=== PATIENT | female | born 1975 | race Caucasian/White ===

== ENCOUNTER 2024-09-10 11:18 | Emergency (ER) | payer SELFPAY ==
--- NOTE | 2024-09-10 11:19 | ECG_ITS ---
[facility] Test Date: 2024-09-10 Pat Name: Amarilis Guardado Department: Room: Gender: Female Internet Webmaster: : 1975 Requested By: Jcarlos Auguste Order Number: [id number] Vlad MD: Trenton Curry M.D. Measurements Intervals [place] Rate: 84 P: 70 NV: 147 QRS: 76 QRSD: 84 T: 57 QT: 391 QTc: 464 Interpretive Statements SINUS RHYTHM WITH FREQUENT VENTRICULAR PREMATURE COMPLEXES No previous ECG available for comparison Electronically Signed On 09-13-2024 23:14:26 [employer]INGS [employer] by Trenton Curry M.D. [id number]
[2024-09-10 11:32] VITALS: BP 144/89; PULSE 64; RESP 16; TEMP 36.6; O2SAT 100; BMI 24.5
--- NOTE | 2024-09-10 12:16 | ED_ITS ---
HPI - Arrhythmia/Palpitations 2 General: Chief Complaint: Arrhythmia/Palpitations Stated Complaint: urgent care sent for EKG Time Seen by Provider: 09/10/24 12:03 History of Present Illness: Amarilis is a 49-year-old female past medical history of SVT on metoprolol for over 20 years, presenting today with 2 days of persistent positional lightheadedness, palpitations, chest discomfort. Symptoms have been ongoing and constant. Has been taking her metoprolol as prescribed. She tested positive for COVID about 8 days ago and has been having some mild shortness of breath related to that, otherwise largely asymptomatic. Denies any new stimulants such as alcohol, caffeine, new medications or exertion. Associated symptoms: Reports pre-syncope; Deny nausea, syncope or vomiting Related Data Home Medications Medication Instructions Recorded Confirmed cetirizine 10 mg tablet (Zyrtec) 10 mg PO DAILY allergies 09/10/24 09/10/24 lorazepam 0.5 mg tablet (Ativan) 0.5 mg PO TID PRN Anxiety 09/10/24 09/10/24 metoprolol succinate 25 mg 25 mg PO QAM 09/10/24 09/10/24 tablet,extended release 24 hr Allergies Allergy/AdvReac Type Severity Reaction Status Date / Time Penicillins Allergy Mild rash/swelli Verified 09/10/24 10:40 ng Review of Systems 2 Const: Denies: fever(s) or chills Card: Reports: palpitations, lightheadedness and pre-syncope; Denies: chest pain, swelling of feet/ankles, syncope or dyspnea on exertion Resp: Reports: dyspnea and chest congestion; Denies: wheezing GI: Denies: abdominal pain, nausea or vomiting PFSH ED 2 PFSH: Social History Smoking and tobacco/nicotine status: current every day tobacco/nicotine user Physical Exam 2 Const: COMMON NORMALS: no acute distress and healthy appearing GENERAL APPEARANCE: cooperative, comfortable and well developed HENMT: COMMON NORMALS: normocephalic, atraumatic, external ears normal, Normal external nose present and oropharynx normal HEAD & SCALP: normal to inspection, normocephalic and atraumatic FACE & SINUS: normal facial exam and face symmetric NOSE: Normal external nose present and Normal nares present EXTERNAL EAR: Yes external ears normal MOUTH: Normal oral and palatal mucosa present, lip normal and tongue normal THROAT: posterior oropharynx normal, tonsils normal and uvula midline Eye: COMMON NORMALS: conjunctivae normal GENERAL EYE: appearance normal, both eyes and all related structures PERIORBITAL: periorbital findings normal CONJUNCTIVA: Yes conjunctivae normal SCLERA: sclerae normal Neck/C-Spine: COMMON NORMALS: no lymphadenopathy and no meningeal signs Resp: COMMON NORMALS: normal respiratory effort and clear to auscultation bilaterally EFFORT & INSPECTION: Yes able to speak in complete sentences, Yes symmetric chest movement, No tachypneic, No respiratory distress, No labored and No audible wheezes AUSCULTATION: clear to auscultation bilaterally Cardio: COMMON NORMALS: regular rate and No murmurs present (Cardio); negative for regular rhythm RATE: regular rate RHYTHM: abnormal rhythm HEART SOUNDS: no murmurs GI: COMMON NORMALS: Soft to palpation and No hepatosplenomegaly present I NSPECTION: No abdominal distension PALPATION: Yes Soft to palpation, No Guarding due to palpation present (GI) and Yes No hepatosplenomegaly present Neuro: MENINGEAL SIGNS: Yes no meningeal signs Skin: COMMON NORMALS: no rashes or lesions noted GENERAL SKIN EXAM: no rashes or lesions noted Course 2 Vital Signs: Vital signs: Vital Signs Temperature 97.8 F 09/10/24 11:32 Pulse Rate 74 09/10/24 14:34 Respiratory Rate 16 09/10/24 11:32 Blood Pressure 118/76 09/10/24 14:34 Pulse Oximetry 98 09/10/24 14:34 Oxygen Delivery Me thod Room Air 09/10/24 11:32 MDM - Arrhythmia/Palpitations Medical Decision Making No arrhythmias while present. Vital signs been stable discharge patient home have her follow-up with her primary care. She was recently diagnosed with COVID which is likely what is stimulating her symptoms at this point. If persist beyond the frame of her COVID follow-up with her primary care doctor for further evaluation. If she has any other change or worsening symptoms return to the emergency room. Medical Records I reviewed the patient's medical records. Lab Data I reviewed the patient's lab results. 09/10/24 12:57 09/10/24 12:57 Radiology Impressions Chest X-Ray 09/10/24 12:19 Impression: Negative chest. Laboratory Results WBC 7.31 10^3/uL (3.29-11.43) 09/10/24 12:57 RBC 5.02 10^6/uL (3.85-5.65) 09/10/24 12:57 Hgb 14.20 g/dL (11.27-16.99) 09/10/24 12:57 Hct 43.9 % (36-47) 09/10/24 12:57 MCV 87.5 fl (85-98) 09/10/24 12:57 MCH 28.3 pg (27-33) 09/10/24 12:57 MCHC 32.3 g/dL (30-55) 09/10/24 12:57 RDW 11.9 % (12.1-15.1) L 09/10/24 12:57 Plt Count 333 10^3/cmm (157-399) 09/10/24 12:57 MPV 11.0 fL (7.4-10.4) H 09/10/24 12:57 Neut % (Auto) 63.6 % 09/10/24 12:57 Lymph % (Auto) 24.2 % 09/10/24 12:57 Story % (Auto) 9.4 % 09/10/24 12:57 Eos % (Auto) 1.8 % 09/10/24 12:57 Baso % (Auto) 0.7 % 09/10/24 12:57 Neut # (Auto) 4.65 10^3/uL (1.8-7.7) 09/10/24 12:57 Lymph # (Auto) 1.8 10^3/uL (0.8-4.8) 09/10/24 12:57 Story # (Auto) 0.7 10^3/uL (0.2-0.9) 09/10/24 12:57 Eos # (Auto) 0.1 10^3/uL (0.0-0.8) 09/10/24 12:57 Baso # (Auto) 0.1 10^3/uL (0.0-0.1) 09/10/24 12:57 Nucleated RBC % (auto) 0 % 09/10/24 12:57 Nucleated RBCs # 0.0 /100WBC 09/10/24 12:57 Sodium 141 mmol/L (136-145) 09/10/24 12:57 Potassium 4.1 mmol/L (3.5-5.1) 09/10/24 12:57 Chloride 102 mmol/L (98-107) 09/10/24 12:57 Carbon Dioxide 28 mmol/L (22-29) 09/10/24 12:57 Anion Gap 15.1 (5-19) 09/10/24 12:57 BUN 14 mg/dL (6-20) 09/10/24 12:57 Creatinine 0.6 mg/dL (0.5-0.9) 09/10/24 12:57 GFR Calculation 106.3 mL/min (90-130) 09/10/24 12:57 Glucose 97 mg/dL (65-115) 09/10/24 12:57 Calculated Osmolality 292 mOsm/kg (285-295) 09/10/24 12:57 Calcium 9.5 mg/dL (8.5-10.5) 09/10/24 12:57 Magnesium 2.1 mg/dL (1.7-2.3) 09/10/24 12:57 Total Bilirubin 0.2 mg/dL (0.15-1.2) 09/10/24 12:57 AST 14 U/L (0-32) 09/10/24 12:57 ALT 16 U/L (0-33) 09/10/24 12:57 Alkaline Phosphatase 72 U/L (35-105) 09/10/24 12:57 Total Protein 7.5 g/dL (6.6-8.7) 09/10/24 12:57 Albumin 4.2 g/dL (3.5-5.2) 09/10/24 12:57 Globulin 3.3 g/dL (1.3-4.6) 09/10/24 12:57 TSH 1.71 uIU/mL (0.27-4.20) 09/10/24 12:57 All radiology interpretation(s) finalized by discharge Discharge Plan Discharge Patient Disposition: Home Clinical Impression: Palpitations, COVID-19 Condition: Stable Prescriptions: No Action metoprolol succinate 25 mg tablet extended release 24 hr 25 mg PO QAM cetirizine [Zyrtec] 10 mg tablet 10 mg PO DAILY lorazepam [Ativan] 0.5 mg tablet 0.5 mg PO TID PRN (Reason: Anxiety) Discharge Orders: Discharge ED (Routine); Ordered 09/10/24 Ordered By: Oscar Salcedo Discharge Diet: Usual diet Discharge Activity: Resume usual activity Patient Instructions: Premature Ventricular Contractions (ED), Opioid Safety, Pain Management Activity Restrictions/Additional Instructions: Thank you for choosing [facility] for your healthcare needs today. It is very important that you follow up as instructed or that you return to the Emergency Department should you have concerns or if your condition changes or worsens in any way. Coding Level of Care Code ED [employer] Operator for Jose Paredes
--- NOTE | 2024-09-10 12:19 | XR_ITS ---
WS: [id number] Portable AP upright chest, 09/10/2024 Clinical Data: dyspnea/cough Comparison: None. Findings: No nodules, masses or effusions are seen. The heart is normal. The pulmonary vascularity is not increased. No pneumonia or pneumothorax is seen. There are monitor leads on the chest wall. XR/XR chest 1V portable [id number] Impression: Negative chest.
[2024-09-10 13:15] LABS: Basophils # 0.1 10^3/uL (0.0-0.1); Basophils % 0.7 %; Eosinophils # 0.1 10^3/uL (0.0-0.8); Eosinophils % 1.8 %; Hematocrit 43.9 % (36-47); Lymphocytes # 1.8 10^3/uL (0.8-4.8); Lymphocytes % 24.2 %; Mean Corpuscular HGB Conc 32.3 g/dL (30-55); Mean Corpuscular Hemoglobin 28.3 pg (27-33); Mean Corpuscular Volume 87.5 fl (85-98); Monocytes # 0.7 10^3/uL (0.2-0.9); Monocytes % 9.4 %; Neutrophils # 4.65 10^3/uL (1.8-7.7); Neutrophils % 63.6 %; Nucleated Red Blood Cells % 0 %; Platelet Count 333 10^3/cmm (157-399); Red Blood Count 5.02 10^6/uL (3.85-5.65); Red Cell Distribution Width 11.9 % (12.1-15.1); White Blood Count 7.31 10^3/uL (3.29-11.43)
[2024-09-10 13:43] LABS: Alanine Aminotransferase 16 U/L (0-33); Albumin Level 4.2 g/dL (3.5-5.2); Alkaline Phosphatase 72 U/L (35-105); Anion Gap 15.1 (5-19); Aspartate Amino Transferase 14 U/L (0-32); Blood Urea Nitrogen 14 mg/dL (6-20); Calcium 9.5 mg/dL (8.5-10.5); Carbon Dioxide 28 mmol/L (22-29); Chloride 102 mmol/L (98-107); Globulin 3.3 g/dL (1.3-4.6); Glomerular Filtration Rate 106.3 mL/min (90-130); Glucose 97 mg/dL (65-115); Magnesium 2.1 mg/dL (1.7-2.3); Osmolality Calculated 292 mOsm/kg (285-295); Potassium 4.1 mmol/L (3.5-5.1); Sodium 141 mmol/L (136-145); Thyroid Stimulating Hormone 1.71 uIU/mL (0.27-4.20); Total Bilirubin 0.2 mg/dL (0.15-1.2); Total Protein 7.5 g/dL (6.6-8.7)
[2024-09-10 14:34] VITALS: BP 118/76; PULSE 74; O2SAT 98
== END 2024-09-10 14:49 | disposition home or self-care (01) ==
PROVIDERS: Emergency Provider Family Medicine
DX: R00.2 Palpitations (principal); U07.1 COVID-19; Z72.0 Tobacco use
CPT/HCPCS: 36415; 71045; 80053; 83735; 84443; 85025; 93005; 99285

== ENCOUNTER → 2024-12-31 14:43 | Outpatient (BNVA) | payer OTHER, SELFPAY | PROVIDERS: PCP Nurse Practitioner Family; Visit Provider Podiatrist Foot & Ankle Surgery | DX: M79.672 Pain in left foot (principal); M79.671 Pain in right foot | CPT/HCPCS: 73630 ==

== ENCOUNTER 2025-01-07 07:17 | Outpatient (CLI) | payer OTHER, SELFPAY ==
--- NOTE | 2025-01-07 07:23 | US_ITS ---
WS: [id number] Complete ABDOMINAL ULTRASOUND HISTORY: RUQ ABDOMINAL PAIN COMPARISON: None available. Liver: 15.3 cm in length. Normal size liver and echogenicity. No bile duct dilatation or mass. Portal Vein: Normal hepatopetal flow with monophasic waveform. Gallbladder: Normally distended gallbladder with no stones or wall thickening. CBD: 0.4 cm Pancreas: Normal size and echogenicity. Right kidney: 10.6 cm x 5.2 x 5.0 cm. Cortex:0.9 cm. Normal size and echogenicity. No hydronephrosis or mass. Left kidney: 10.4 cm x 4.4 cm x 4.3 cm. Cortex: 1.1 cm. Normal size and echogenicity. No hydronephrosis or mass. Spleen: 10.0 cm. Normal size and echogenicity. Aorta and IVC: Unremarkable abdominal aorta and IVC. US/US abdomen complete* [id number] Impression: Normal complete abdomen ultrasound.
== END 2025-01-07 07:18 | disposition home or self-care (01) ==
LOC: RAD 07:19
PROVIDERS: PCP Nurse Practitioner Family; Visit Provider Nurse Practitioner Family
DX: R10.11 Right upper quadrant pain (principal)
CPT/HCPCS: 76700

== ENCOUNTER 2025-03-10 09:03 | Day surgery (SDC) | payer OTHER, SELFPAY ==
[2025-03-10 09:24] VITALS: BP 116/76; PULSE 86; RESP 18; TEMP 36.4; O2SAT 98; BMI 25.5
--- NOTE | 2025-03-10 09:48 | ANES.PREANE2 ---
Pre-Anesthetic Assessment Height/Weight: Height 1.73 m Weight 76.204 kg Temp Pulse Resp BP Pulse Ox O2 Del Method 97.6 F 86 18 116/76 98 Room Air 03/10/25 09:24 03/10/25 09:24 03/10/25 09:24 03/10/25 09:24 03/10/25 09:24 03/10/25 09:24 Operation Date: 03/10/25 10:30 Proposed Procedures p Colonoscopy 61416 G0121 Z12.11(Not Applicable) - Theo Carey MD Familial anesthetic complications: None Was Beta Chad taken within 24 hours: Yes Was Clonidine taken within 24 hours: N/A Last intake: Intake Last Liquid Date 03/09/25 Last Liquid Time 20:00 Last Solid Date 03/08/25 Last Solid Time 20:00 Social No alcohol and No tobacco Exam alert, oriented x 3, clear to auscultation bilaterally and regular rate & rhythm Airway Mallampati: Class I Dentition: full CV/HEM SVT Anesthetic Plan ASA status: 3 Anesthesia: MAC Risk of > 500 ml blood loss (7ml/kg in children): No Medications/Allergies Home Medications ?Medication ?Instructions ?Recorded ?Confirmed ?Last Taken ?Type cetirizine 10 mg tablet (Zyrtec) 10 mg PO DAILY PRN allergies 09/10/24 03/09/25 03/09/25 History lorazepam 0.5 mg tablet (Ativan) 0.5 mg PO TID PRN Anxiety 09/10/24 03/10/25 2 Months Ago History ~01/08/25 metoprolol succinate 25 mg 25 mg PO DAILY 09/10/24 03/09/25 03/09/25 History tablet,extended release 24 hr zinc acetate 50 mg (zinc) capsule 50 mg PO DAILY 02/09/25 03/09/25 03/08/25 History Allergies Allergy/AdvReac Type Severity Reaction Status Date / Time Penicillins Allergy Mild rash/swelli Verified 03/09/25 08:46 ng Current Medications Generic Name Dose Route Start Last Admin Trade Name Freq PRN Reason Stop Dose Admin Sodium Chloride 1,000 mls @ 15 mls/hr 03/10/25 09:06 03/10/25 09:44 Sodium Chloride 0.9% IV 03/11/25 09:05 15 mls/hr .Q24H PRN Administration COLONOSCOPY FLUIDS PFSH Anesthesia Social History Smoking and tobacco/nicotine status: never used tobacco/nicotine
--- NOTE | 2025-03-10 10:50 | W.PM.OPSUD ---
Surgery/Procedure H&P Update DATE OF PROCEDURE: March 10, 2025 DATE H&P PERFORMED: 02/09/25 H&P UPDATE INFORMATION: I have reviewed H&P completed within last 30 days, I have examined patient prior to procedure and No changes to prior documentation PLANNED PROCEDURE: Operation Date: 03/10/25 10:30 Proposed Procedures p Colonoscopy [id number] G0121 Z12.11(Not Applicable) - Theo Carey MD
[2025-03-10 11:19] VITALS: BP 107/73; PULSE 80; RESP 20; TEMP 36.7; O2SAT 100
[2025-03-10 11:35] VITALS: BP 124/68; PULSE 76; RESP 18; O2SAT 100
--- NOTE | 2025-03-10 16:04 | ANE.PACU2 ---
Inpatient post-anesthesia follow up: Airway intact: Yes Vital signs: Temperature 98.0 F Pulse Rate 76 Respiratory Rate 18 Blood Pressure 124/68 Pulse Oximetry 100 Oxygen Delivery Me thod Room Air Oxygen Flow Rate 2 Fraction of Inspir ed Oxygen Hydration adequate: Yes Nausea and vomiting: No Pain level: 1 Mental status: Baseline
== END 2025-03-10 11:47 | disposition home or self-care (01) ==
PROVIDERS: PCP Nurse Practitioner Family; Visit Provider Student in an Organized Health Care Education/Training Program
PROC: 0DJD8ZZ Inspection of Lower Intestinal Tract, Via Natural or Artificial Opening Endoscopic (ICD-10-PCS; CPT 45378; principal; 2025-03-10 10:30)
DX: Z12.11 Encounter for screening for malignant neoplasm of colon (principal); K62.1 Rectal polyp; Z79.899 Other long term (current) drug therapy; Z88.0 Allergy status to penicillin
CPT/HCPCS: 45380; 88305; J2704; J7030

== ENCOUNTER 2025-07-08 13:36 | Outpatient (CLI) | payer OTHER, SELFPAY ==
--- NOTE | 2025-07-08 13:39 | MM_ITS ---
WS: [id number] BILATERAL 3D TOMOSYNTHESIS DIGITAL SCREENING MAMMOGRAPHY WITH CAD CLINICAL INFORMATION: SCREENING HISTORY: Screening mammogram. No current complaints. COMPARISON: New baseline TECHNIQUE: Bilateral CC and MLO views. FINDINGS: The breasts are composed of heterogeneous fibroglandular density tissue, which can limit the detection of small underlying mass lesions. No suspicious mass, asymmetry, calcifications, or architectural distortion. No evidence of malignancy. 2 biopsy markers RIGHT breast. Incidental punctate calcifications bilaterally. MM/MM [facility] tomosynthesis [id number] IMPRESSION: DENSITY: The breasts are heterogeneously dense, which may obscure small masses. BI-RADS: 2 - Benign FOLLOW UP: 1 Year Follow-up Recommend return to annual screening mammography.
== END 2025-07-08 13:37 | disposition home or self-care (01) ==
LOC: RAD 13:37
PROVIDERS: PCP Nurse Practitioner Family; Visit Provider Nurse Practitioner Family
DX: Z12.31 Encounter for screening mammogram for malignant neoplasm of breast (principal); R92.323 Mammographic fibroglandular density, bilateral breasts; R92.333 Mammographic heterogeneous density, bilateral breasts; R92.1 Mammographic calcification found on diagnostic imaging of breast; Z96.89 Presence of other specified functional implants
CPT/HCPCS: 77063; 77067